=== PATIENT | male | born 1985 | race Caucasian/White ===

== ENCOUNTER 2021-07-09 17:53 | Emergency (ER) | payer MEDICAID, OTHER ==
[~2021-07-09] VITALS: Ht 170.2 cm; Wt 68.0 kg
--- NOTE | 2021-07-09 18:00 | NUR ---
DOMINIQUE Correia at bedside
[2021-07-09] MEDS ORDERED: ACETAMINOPHEN ES 500 MG TABLET ONE (18:09)
[2021-07-09] MEDS ORDERED: IBUPROFEN 600 MG TABLET ONE (18:09)
--- NOTE | 2021-07-09 18:22 | NUR ---
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
[2021-07-09] MEDS ORDERED: ACETAMINOPHEN 325 MG TABLET PO ONE (18:30)
[2021-07-09] MEDS ORDERED: IBUPROFEN 600 MG TABLET PO ONE (18:30)
--- NOTE | 2021-07-09 18:36 | NUR ---
parker carcamo at bedside for placement of R ulnar gutter
[2021-07-09] MEDS ORDERED: HYDR-3972 PO (18:40)
[2021-07-09 18:53] VITALS: BP 124/78
--- NOTE | 2021-07-09 18:53 | NUR ---
Patient discharged to home in stable condition. Written and verbal after care instructions given. Patient verbalizes understanding of instruction.
== END 2021-07-09 18:53 | disposition home or self-care (01) ==
LOC: ER 17:56
DX: S62.336A Displaced fracture of neck of fifth metacarpal bone, right hand, initial encounter for closed fracture (principal); W22.01XA Walked into wall, initial encounter; Y93.89 Activity, other specified; Y92.89 Other specified places as the place of occurrence of the external cause; Y99.8 Other external cause status
CPT/HCPCS: 73130-TC